=== PATIENT | male | born 1995 | race African-American/Black ===

== ENCOUNTER 2016-08-23 22:20 | Emergency (ER) | payer OTHER ==
[2016-08-23 22:50] LABS: BASOPHIL 0.4 % (0-2); EOSINOPHIL 1.2 % (0-5); HCT 42.7 % (42.0-52.0); HGB 14.5 g/dl (13.2-18.0); LYMPHOCYTE 26.9 % (15-48); MCV 73.5 fL (78.0-100.0); MONOCYTE 8.3 % (0-12); MPV 12.1 fL (6.0-9.5); NEUTROPHIL 63.2 % (41-80); PLT 227 K/uL (150-400); RBC 5.81 M/uL (4.70-6.00); RDW 13.2 % (11.5-14.0); WBC 7.4 K/uL (4.0-10.5)
[2016-08-23 22:53] LABS: BILIRUBIN NEGATIVE (NEGATIVE); BLOOD NEGATIVE Ery/uL (NEGATIVE); CLARITY CLEAR (CLEAR); COLOR YELLOW (YELLOW); GLUCOSE (U) 3+ mg/dL (NORMAL); KETONE (U) 1+ (SMALL) mg/dL (NEGATIVE); LEUKOCYTES NEGATIVE Leu/uL (NEGATIVE); NITRITE NEGATIVE (NEGATIVE); PROTEIN NEGATIVE (NEGATIVE); SPECIFIC GRAVITY <=1.005 (1.001-1.030); UROBILINOGEN 0.2 mg/dL (0.2-1.0); pH 6.5 (5.0-9.0)
[2016-08-23 23:01] LABS: ACETAMINOPHEN (TYLENOL) < 5.0 ug/mL (10.0-30.0); ALBUMIN 4.8 g/dL (3.5-5.0); ALCOHOL (ETOH) MEDICAL 41 mg/dL; BILIRUBIN - TOTAL 0.4 mg/dL (0.1-1.0); GLOBULIN (CALCULATION) 3.1 g/dL (2.2-4.2); POTASSIUM 3.9 mmol/L (3.5-5.1); SALICYLATE < 6 ug/mL (0-300); TOTAL PROTEIN 7.9 g/dL (6.4-8.3)
[2016-08-23 23:03] LABS: AMPHETAMINES NEGATIVE (NEGATIVE); BARBITURATES NEGATIVE (NEGATIVE); BENZODIAZEPINES NEGATIVE (NEGATIVE); COCAINE NEGATIVE (NEGATIVE); MARIJUANA (THC) NEGATIVE (NEGATIVE); METHADONE NEGATIVE (NEGATIVE); TRICYCLIC ANTIDEPRESSANT NEGATIVE (NEGATIVE)
== END 2016-08-24 06:25 | disposition other institution (70) ==
LOC: FER 22:20
PROVIDERS: Emergency Medicine
DX: T51.0X2A Toxic effect of ethanol, intentional self-harm, initial encounter (principal); T39.1X2A Poisoning by 4-Aminophenol derivatives, intentional self-harm, initial encounter; T39.312A Poisoning by propionic acid derivatives, intentional self-harm, initial encounter; E11.9 Type 2 diabetes mellitus without complications; F10.10 Alcohol abuse, uncomplicated; Y90.2 Blood alcohol level of 40-59 mg/100 ml
CPT/HCPCS: 36415; 71010; 80053; 80305; 81003; 85025; 93005; G0480

== ENCOUNTER 2016-08-27 23:52 | Emergency (ER) | payer OTHER ==
[2016-08-28 01:22] LABS: BASOPHIL 0.2 % (0-2); EOSINOPHIL 1.5 % (0-5); HGB 13.3 g/dl (13.2-18.0); LYMPHOCYTE 34.8 % (15-48); MCH 25.1 pg (25.0-31.0); MCHC 34.1 g/dL (32.0-36.0); MCV 73.6 fL (78.0-100.0); MONOCYTE 9.8 % (0-12); NEUTROPHIL 53.7 % (41-80); PLT 202 K/uL (150-400); RDW 13.2 % (11.5-14.0); WBC 4.7 K/uL (4.0-10.5)
[2016-08-28 01:47] LABS: CREATININE 0.9 mg/dL (0.7-1.2); POTASSIUM 3.9 mmol/L (3.5-5.1)
== END 2016-08-28 02:13 | disposition home or self-care (01) ==
LOC: FER 23:52
PROVIDERS: Emergency Medicine
DX: E11.65 Type 2 diabetes mellitus with hyperglycemia (principal); Z88.0 Allergy status to penicillin; Z79.84 Long term (current) use of oral hypoglycemic drugs
CPT/HCPCS: 36415; 80048; 82009; 85025